=== PATIENT | male | born 1955 | race Caucasian/White ===

== ENCOUNTER → 2021-06-16 10:30 | Outpatient (BNVA) | payer MEDICARE, MEDICAID, SELFPAY | PROVIDERS: PCP Nurse Practitioner Family; Visit Provider Nurse Practitioner Family | DX: G20 Parkinson's disease (principal); G40.89 Other seizures; G24.01 Drug induced subacute dyskinesia; G62.9 Polyneuropathy, unspecified; M54.50 Low back pain, unspecified | CPT/HCPCS: Q3014 ==

== ENCOUNTER → 2021-09-28 13:26 | Outpatient (BNVA) | payer MEDICARE, MEDICAID, SELFPAY | PROVIDERS: PCP Nurse Practitioner Family; Visit Provider Nurse Practitioner Family | DX: G20 Parkinson's disease (principal); G62.9 Polyneuropathy, unspecified; G24.01 Drug induced subacute dyskinesia; M54.50 Low back pain, unspecified | CPT/HCPCS: 99212 ==

== ENCOUNTER → 2021-12-22 09:07 | Outpatient (BNVA) | payer MEDICARE, MEDICAID, SELFPAY | PROVIDERS: PCP Nurse Practitioner Family; Visit Provider Nurse Practitioner Family | DX: G20 Parkinson's disease (principal); G24.01 Drug induced subacute dyskinesia; G62.9 Polyneuropathy, unspecified | CPT/HCPCS: Q3014 ==

== ENCOUNTER → 2022-07-20 13:03 | Outpatient (BNVA) | payer MEDICARE, MEDICAID, SELFPAY | PROVIDERS: PCP Nurse Practitioner Family; Visit Provider Nurse Practitioner Family | DX: G20 Parkinson's disease (principal); G24.01 Drug induced subacute dyskinesia; G62.9 Polyneuropathy, unspecified; G40.89 Other seizures; M54.50 Low back pain, unspecified | CPT/HCPCS: Q3014 ==

== ENCOUNTER 2023-08-02 10:44 | Outpatient (AMB) | payer MEDICARE, MEDICAID, SELFPAY ==
--- NOTE | 2023-08-02 10:55 | MHC.OFFVIS ---
Intake Vital Signs 08/02/23 10:57 Height 6 ft Weight 276 lb 6 oz BMI 37.5 BP 124/78 Blood Pressure Location Rt brachial Position Sitting Pulse 83 Pulse Source Pulse Oximeter Pulse Oximetry (%) 96 Oxygen Delivery Method Room Air Intake Visit Reasons: Follow up appt per Eli DESAI Intake Note: Patient presents for follow up. it's getting a little worst, it's hard to put information in my checkbook Allergies morphine Adverse Reaction (Verified 08/02/23 10:58) Nausea Medication List - Last Reconciled 08/02/23 by MANSI Velasquez amantadine HCl 100 mg PO BID 28 days amlodipine 5 mg PO DAILY atorvastatin 40 mg PO BEDTIME carbidopa-levodopa 25-100 mg 2 tabs at 6am, 9am, and 12pm and 1.5 tab at 4pm and 9pm. 30 days clopidogrel (Plavix) 75 mg PO DAILY divalproex (Depakote) 250 mg PO BID divalproex ER mg PO docusate sodium 100 mg PO .twice a day donepezil 5 mg PO DAILY dulaglutide (Trulicity) mg subcut duloxetine (Cymbalta) 60 mg PO BID gabapentin 300 mg PO TID 28 days levothyroxine 112 mcg PO DAILY olanzapine (Zyprexa) 7.5 mg PO DAILY tamsulosin 0.8 mg PO BEDTIME tamsulosin (Flomax) 0.8 mg PO DAILY trihexyphenidyl mg PO TID HPI HPI Comments History of Present Illness Details 67-year-old male presents for f/u visit for follow-up of Parkinson's, seizure. Patient is accompanied by his live-in roll contour grinder. Patient was last seen in July 2022. Pt reports the following interval medical history changes: 2 weeks, he was diagnosed w/ LLE medial calf cellulites- was initially tx'd w/ keflex then switched doxycycline- last dose is tomorrow, has PCP f/u scheduled. Pt's current PD medication regimen: CD-LD 25-100mg ?2 tabs at 6am, 8:30am, and 12pm and 1.5 tab at 4pm and 8pm. Amantadine 100mg bid at 8am and 4pm Trihexyphenidal 1mg tid at 8am, 12pm, 4pm Gabapentin 300mg tid at 8am, 12pm, 8pm Do medication effects last between doses: None Pt's primary concerns are: Increased action tremor with writing or holding a glass- does not notice it more/less at different times. Denies rest tremor. ADL's: Ind Swallowing: No issues Drooling: No issues Orthostatic lightheadedness: None Constipation: None w/ colace bid. Freezing: None Stiffness: None Tremor: as above Dyskinesia: Prone to rolling his ankles when watching TV or sitting at the table Falls: None Hallucinations: None Memory: LTM- good. Some increase in his STM difficulties. Does better with routine. Mood: Stable. Mood tends to be worse in the am, and is better as the day progresses. Sleep: No issues. Not recalling his dreams as much. He is using his CPAP machine. Exercise: He is still going to the [employer] in [place]. Not riding the stationary bike- as staff changed and they are no longer asking him if he would like to. Walking 3 x's a week. Other: Still has some BLE calf tightness/stiffness more so in the evening. [facility] Medical History (Updated 08/03/23 @ 10:47 by MANSI Velasquez) Parkinson's disease Family History Father Heart disease Mother Cancer Sister No problems noted. Social History Alcohol intake: never Patient Tobacco Use Status: Never used Tobacco Review of Systems Const All systems reviewed & are unremarkable except as noted in HPI and below Physical Exam Vital Signs: Last Vital Signs Pulse 83 08/02/23 10:57 BP 124/78 08/02/23 10:57 Pulse Ox 96 08/02/23 10:57 Oxygen Delivery Method Room Air 08/02/23 10:57 BMI result Body Mass Index 37.5 Const General: cooperative and no acute distress Resp Effort & Inspection: normal respiratory effort and able to speak in complete sentences Neuro Other: General: Alert and oriented, responding appropriately, needs clarification on more complex questions. Expression: Decreased expression blink. Very mild orobuccal movements Voice: Soft voice Tremor: BUE postural tremor Tone: BUE tone Dyskinesia: None noted FFM: Very mild bradykinesia Foot taps: Mild bradykinesia Gait: Stands slowly, slight stoop, decreased arm swing, steps with low floor clearance, overall steady Psych: Pleasant affect Assessment & Plan Assessment & Plan (1) Parkinson's disease with dyskinesia: Comment: Positive MARKUS scan (03/31 at [facility]) tremor exacerbated by Depakote and Zyprexa Code(s): G20.B1 - Parkinson's disease with dyskinesia, without mention of fluctuations (2) Drug induced subacute dyskinesia: Comment: oral movement d/t Tardive dyskinesia Code(s): G24.01 - Drug induced subacute dyskinesia (3) Neuropathy: Code(s): G62.9 - Polyneuropathy, unspecified (4) Other seizures: Comment: Focal seizure s/p embolic stroke in 2013. Video EEG-epileptogenic activity in left frontocentral and left temporal region with mild generalized slowing. Code(s): G40.89 - Other seizures Plan Continue Sinemet 25-100mg ?2 tabs at 6am, 8:30am, and 12pm and 1.5 tab at 4pm and 8pm. Continue Amantadine 100mg bid. Increase trihexyphenidyl from 1 mg t.i.d. to 2 mg at 08:00, 1 mg at 12:00, 2 mg at 16:00- in hopes this reduces kinetic tremor.- may hold on starting until left lower extremity cellulitis is cleared. Continue Gabapentin 300mg tid. Increase physical activity, we will request that his day program begin to encourage him to resume using the stationary bike for at least 30 minutes every day that he attends program. f/u in 4-6 months in-person. Medications: Changed From trihexyphenidyl PO TID To trihexyphenidyl 2mq at 8am, 1mg at 12pm, 2mg at 4pm orally .; 28 days 70 tabs 3RF Coding Level of Care Code Est Pt Level 4 (63707) Diagnoses Parkinson's disease with dyskinesia G20.B1 Drug induced subacute dyskinesia G24.01 Neuropathy G62.9 Other seizures G40.89
[2023-08-02 10:57] VITALS: BP 124/78; PULSE 83; O2SAT 96; BMI 37.5
== END 2023-08-02 11:50 | disposition home or self-care (01) ==
PROVIDERS: PCP Nurse Practitioner Family; Visit Provider Nurse Practitioner Family
DX: G20.B1 Parkinson's disease with dyskinesia, without mention of fluctuations (principal); G40.89 Other seizures; G62.9 Polyneuropathy, unspecified
CPT/HCPCS: 99214

== ENCOUNTER → 2023-08-02 10:44 | Outpatient (BNVA) | payer MEDICARE, MEDICAID, SELFPAY | PROVIDERS: PCP Nurse Practitioner Family; Visit Provider Nurse Practitioner Family | DX: G20.B1 Parkinson's disease with dyskinesia, without mention of fluctuations (principal); G24.01 Drug induced subacute dyskinesia; G62.9 Polyneuropathy, unspecified; G40.89 Other seizures | CPT/HCPCS: 99212 ==

== ENCOUNTER 2023-11-15 11:35 | Outpatient (AMB) | payer MEDICARE, MEDICAID, SELFPAY ==
--- NOTE | 2023-11-15 11:35 | A.OFFVIS_ITS ---
Intake Visit Reasons: Follow up-CONF Intake Note: Patient has no issues or concerns today. Allergies morphine Adverse Reaction (Verified 11/15/23 11:36) Nausea Medication List - Last Reconciled 11/15/23 by MANSI Velasquez amantadine HCl 100 mg PO BID 28 days amlodipine 5 mg PO DAILY atorvastatin 40 mg PO BEDTIME carbidopa-levodopa 25-100 mg 2 tabs at 6am, 9am, and 12pm and 1.5 tab at 4pm and 9pm. 30 days clopidogrel (Plavix) 75 mg PO DAILY divalproex (Depakote) 250 mg PO BID divalproex ER mg PO docusate sodium 100 mg PO .twice a day donepezil 5 mg PO DAILY dulaglutide (Trulicity) mg subcut duloxetine (Cymbalta) 60 mg PO BID gabapentin 300 mg PO TID 28 days levothyroxine 112 mcg PO DAILY olanzapine (Zyprexa) 7.5 mg PO DAILY tamsulosin 0.8 mg PO BEDTIME tamsulosin (Flomax) 0.8 mg PO DAILY trihexyphenidyl 2mq at 8am, 1mg at 12pm, 2mg at 4pm orally .; 28 days HPI Comments Details: 67-yr-old male presents for f/u televideo visit- visit switched over to telephone visit d/t link was not effective. Pt is accompanied by his caregiver. Pt's primary concerns is he is still having bothersome action tremor with writing- especially in his check register, or holding a glass. This is increased when anxious. He has not noticed an appreciable change since increasing Trihexiphendyl, his PCP further increased the dose to 2mg tid about 2 weeks ago. Though fully starting this dose was delayed d/t mail order med bubble packs and day program. Pt's current PD medication regimen: CD-LD 25-100mg ?2 tabs at 6am, 8:30am, and 12pm and 1.5 tab at 4pm and 8pm. Amantadine 100mg bid at 8am and 4pm Trihexyphenidal 2mg tid at 8am, 12pm, 4pm Gabapentin 300mg tid at 8am, 12pm, 8pm ADL's: Ind Swallowing: No issues Drooling: No issues Orthostatic lightheadedness: None Constipation: None w/ colace bid. Freezing: None Stiffness: None Tremor: as above Dyskinesia: Prone to rolling his ankles when watching TV or sitting at the table Falls: None Hallucinations: None Memory: LTM- good. Some STM difficulties. Does better with routine. Mood: Stable. Mood tends to be worse in the am, and is better as the day progresses. Sleep: No issues. Not recalling his dreams as much. He is using his CPAP machine. Exercise: He is still going to the [employer] in [place]. Riding the stationary bike more regularly. Walking a few x's per week. Other: Using BLE compression stockings. [facility] Medical History (Updated 08/03/23 @ 10:47 by MANSI Velasquez) Parkinson's disease Family History Father Heart disease Mother Cancer Sister No problems noted. Social History Alcohol intake: never Patient Tobacco Use Status: Never used Tobacco Review of Systems Const All systems reviewed & are unremarkable except as noted in HPI and below Physical Exam Const General: cooperative and no acute distress Resp Effort & Inspection: normal respiratory effort and able to speak in complete sentences Neuro Other: General: Alert, orienetd, responding appropriately, w/ some STM lapses Voice: Soft voice Telehealth Telehealth Telehealth Platform: Telephone Location of provider rendering services: practice address Location of patient: address on file Patient Identification confirmed using: Name, : Yes Telehealth method: video Patient verbally consented to treatment: Yes Patient verbally consented to billing insurance company: Yes Patient informed of any privacy concerns related to visit: Yes Minutes spent on Phone/Video with Pt.: 23 Assessment & Plan Assessment & Plan (1) Parkinson's disease with dyskinesia: Comment: Positive MARKUS scan (03/31 at [facility]) tremor exacerbated by Depakote and Zyprexa Code(s): G20.B1 - Parkinson's disease with dyskinesia, without mention of fluctuations Category: Medical (2) Neuropathy: Code(s): G62.9 - Polyneuropathy, unspecified Category: Medical (3) Drug induced subacute dyskinesia: Comment: oral movement d/t Tardive dyskinesia Code(s): G24.01 - Drug induced subacute dyskinesia Category: Medical (4) Other seizures: Comment: Focal seizure s/p embolic stroke in 2014. Video EEG-epileptogenic activity in left frontocentral and left temporal region with mild generalized slowing. Code(s): G40.89 - Other seizures Category: Medical Plan As trihexyphendyl recently increased, will hold making any changes for at least 8 weeks to assess for full effect and tolerance. If no reduction in kinetic tremor and tolerated well, could consider further increase in triheyphendyl or increasing Amantadine. Reviewed to monitor for anti-cholinergic s/e's. Advised to try using a larger check book ledger, use covered cups. Information shared on the [employer]- they have a information on different adaptive equipment which may help pt. Discussed trying OT- however pt and caregiver do not think that pt will do the needed work/exercises to make this beneficial. For now: Continue Sinemet 25-100mg ?2 tabs at 6am, 8:30am, and 12pm and 1.5 tab at 4pm and 8pm. Continue Amantadine 100mg bid. Continue trihexyphenidyl 2mg tid. Continue Gabapentin 300mg tid. Continue physical activity. f/u in 6 months in-person. Coding Level of Care Code Tele Est Pt Level 4 (09789) Diagnoses Parkinson's disease with dyskinesia G20.B1 Neuropathy G62.9 Drug induced subacute dyskinesia G24.01 Other seizures G40.89
--- OUTSIDE RECORDS SUMMARY | 2023-11-17 10:30 | XMS_ITS | Continuity of Care Document ---
Author Organization [facility] Address [address] [facility], [address], [address] [place] [id number]- Care Team Providers Care Printed Circuit Boards Stripper Etcher Name Role Phone Kalie TRACY, Katya Michaels Primary Care Physic kyler Encounter [facility] Date(s): 09/01/22 - 10/01/22 [facility] [address], [address], [address] [place] [id number]- Attending Physician: Radhika Nowak Admitting Physician: Radhika Nowak Referring Physician: AdmtrRadhika Allergies, Adverse Reactions, Alerts Substance Reaction Severity Status morphine nausea Active Immunizations Given and Recorded Vaccine Date Status Refusal Reason SARS-CoV-2 (COVID-19) mRNA BNT-162b2 vac 09/10/20 Given SARS-CoV-2 (COVID-19) mRNA BNT-162b2 vac 08/20/20 Given Not Given Vaccine Date Status Refusal Reason pneumococcal 23-valent vaccine 1 03/28/15 Not Give n Patient Refuses influenza virus vaccine, inactivated 2 03/28/15 No t Given Patient Refuses 1Result Note: pt refused 2Result Note: pt refused Medications amantadine 100 mg oral capsule 100 mg, 1, capsule, By Mouth, 2 times a day, # 60 capsule, Refills 0, Tot. Refills 0, Maintenance, 04/29/22 10:37:00 EST, Route to Pharmacy Electronically, [facility], Partial fill upon patient request if the prescription is for a schedule... Start Date: 04/29/22 Status: Ordered amLODIPine 5 mg oral tablet 5 mg, 1, tablet, By Mouth, Daily in AM, # 30 tablet, Refills 0, Tot. Refills 0, Maintenance, 04/29/22 10:37:00 EST, Route to Pharmacy Electronically, [facility], Partial fill upon patient request if the prescription is for a schedule II op... Start Date: 04/29/22 Status: Ordered atorvastatin 40 mg oral tablet 1 tablet = 40 mg, By Mouth, Daily at bedtime, # 30 tablet, 0 Refills, Maintenance, 04/29/22 10:37:00 EST, Tablet, [facility], Partial fill upon patient request if the prescription is for a schedule II opioid drug., 183, cm, 04/29/22 8:11:0... Start Date: 04/29/22 Status: Ordered carbidopa-levodopa 25 mg-100 mg oral tablet 2 tablet, By Mouth, 3 times a day, instructions: 2 tablets: 6am, 9am, 12pm 1.5 tablets: 4pm, bedtime, # 180 tablet, 0 Refills, Maintenance, 04/29/22 10:37:00 EST, Tablet, [facility], Partial fill upon patient request if the prescription... Start Date: 04/29/22 Status: Ordered carbidopa-levodopa 25 mg-100 mg oral tablet 1.5 tablet, By Mouth, 2 times a day, instructions: 2 tablets: 6am, 9am, 12pm 1.5 tablets: 4pm, bedtime, # 90 tablet, 0 Refills, Maintenance, 04/29/22 10:37:00 EST, Tablet, [facility],Partial fill upon patient request if the prescriptio... Start Date: 04/29/22 Status: Ordered clopidogrel 75 mg oral tablet 75 mg, 1, tablet, By Mouth, Daily, # 30 tablet, Refills 0, Tot. Refills 0, Maintenance, 04/29/22 10:40:00 EST, Route to Pharmacy Electronically, [facility], Partial fill upon patient request if the prescription is for a schedule II opioid... Start Date: 04/29/22 Status: Ordered divalproex sodium 250 mg oral tablet, extended release 3 tablet = 750 mg, By Mouth, Daily at bedtime, # 90 tablet, 9 Refills, Maintenance, 09/01/22 15:06:00 EDT, ER Tablet, [facility], Partial fill upon patient request if the prescriptionis for a schedule II opioid drug., 183, cm, 05/02/22 8:... Start Date: 09/01/22 Stop Date: 06/28/23 Status: Ordered docusate sodium 100 mg oral capsule 100 mg, 1, capsule, By Mouth, 2 times a day, # 60 capsule, Refills 0, Tot. Refills 0, Maintenance, 04/29/22 10:40:00 EST, Route to Pharmacy Electronically, [facility], Partial fill upon patient request if the prescription is for a schedule... Start Date: 04/29/22 Status: Ordered donepezil 5 mg oral tablet 5 mg, 1, tablet, By Mouth, Daily at bedtime, # 30 tablet, Refills 0, Tot. Refills 0, Maintenance, 04/29/22 10:41:00 EST, Route to Pharmacy Electronically, [facility], Partial fill upon patient request if the prescription is for a schedule... Start Date: 04/29/22 Status: Ordered duloxetine 30 mg oral enteric coated capsule 1 capsule = 30 mg, By Mouth, Daily, # 30 capsule, 0 Refills, Maintenance, 04/29/22 10:40:00 EST, Capsule, [facility], Partial fill upon patient request if the prescription is for a schedule II opioid drug., 183, rico, 04/29/22 8:11:00 EST, H... Start Date: 04/29/22 Status: Ordered duloxetine 60 mg oral enteric coated capsule 1 capsule = 60 mg, By Mouth, Daily at bedtime, # 30 capsule, 0 Refills, Maintenance, 04/29/22 10:40:00 EST, Capsule, [facility], Partial fill upon patient request if the prescription is for a schedule II opioid drug., 183, cm, 04/29/22 8:1... Start Date: 04/29/22 Status: Ordered gabapentin 300 mg oral capsule 300 mg, 1, capsule, By Mouth, 2 times a day, # 60 capsule, Refills 0, Tot. Refills 0, Maintenance, 04/29/22 10:40:00 EST, Route to Pharmacy Electronically, [facility], Partial fill upon patient request if the prescription is for a schedule... Start Date: 04/29/22 Status: Ordered lactulose 10 gm/15 ml oral syrup 30 mL = 20 Gm, By Mouth, 3 times a day, PRN Constipation, 0 Refills, Maintenance, 04/15/22 9:16:00 EDT, Syrup, Partial fill upon patient request if the prescription is for a schedule II opioid drug. Start Date: 04/15/22 Status: Ordered levothyroxine 0.112 mg oral tablet 1 tablet = 112 mcg, By Mouth, Daily, # 30 tablet, 0 Refills, Maintenance, 04/29/22 10:40:00 EST, Tablet, [facility], Partial fill upon patient request if the prescription is for a schedule II opioid drug., 183, cm, 04/29/22 8:11:00 EST, He... Start Date: 04/29/22 Status: Ordered olanzapine 5 mg oral tablet 5 mg, 1, tablet, By Mouth, Daily at supper, # 30 tablet, Refills 0, Tot. Refills 0, Maintenance, 04/29/22 10:41:00 EST, Route to Pharmacy Electronically, [facility], Partial fill uponpatient request if the prescription is for a schedule I... Start Date: 04/29/22 Status: Ordered tamsulosin 0.4 mg oral capsule 0.8 mg, 2, capsule, By Mouth, Daily at bedtime, # 60 capsule, Refills 0, Tot. Refills 0, Maintenance, 04/29/22 10:41:00 EST, Route to Pharmacy Electronically, [facility], Partial fillupon patient request if the prescription is for a sched... Start Date: 04/29/22 Status: Ordered traZODone 50 mg oral tablet 50 mg, 1, tablet, By Mouth, Daily at bedtime, PRN, 1 tablet as needed for insomnia, # 30 tablet, Refills 0, Tot. Refills 0, Maintenance, Sleep, 04/29/22 10:41:00 EST, Route to Pharmacy Electronically, [facility], Partial fill upon patient... Start Date: 04/29/22 Status: Ordered trihexyphenidyl 2 mg oral tablet 1 mg, 0.5, tablet, By Mouth, 3 times a day, # 45 tablet, Refills 0, Tot. Refills 0, Maintenance, 04/29/22 10:41:00 EST, Route to Pharmacy Electronically, [facility], Partial fill uponpatient request if the prescription is for a schedule I... Start Date: 04/29/22 Status: Ordered Tylenol 325 mg oral tablet 650 mg, 2, tablet, By Mouth, Every 4 hours, PRN, # 60 tablet, Refills 0, Tot. Refills 0, Maintenance, Pain , Mild, 04/29/22 10:36:00 EST, Route to Pharmacy Electronically, [facility],Partial fill upon patient request if the prescription i... Start Date: 04/29/22 Status: Ordered Problem List Condition Confirmation Course Effective Dates Status H ealth Status Informant Anxiety Confirmed Active Atrial septal defect Confirmed Active Abnormal glucose Confirmed Active Embolic stroke 1 Confirmed Active Depression Confirmed Active Dyslipidemia Confirmed Active Elevated prostate specific antigen (PSA) Confirmed Active GERD (gastroesophageal reflux disease) Confirmed Active Hypothyroidism Confirmed Active IBS (irritable bowel syndrome) Confirmed Active Obese class II Confirmed Active Parkinsonism Confirmed Active Toxicology Confirmed Active Prostatitis Confirmed Active Tremor Confirmed Active 1on aspirin 325 mg po daily at d/c from [place] Social History Social History Type Response Smoking Status Never smoker entered on: 02/20/15 Sex Patient Care team information Care Team Personnel Name: Loretta Benjamin RN Position: [facility] RN Member Role: Primary Care Nurse Name: Ani Denise RN Position: [facility] RN Member Role: Primary Care Nurse Name: Bennie Huerta MD Position: [facility] PCO w/OE and EZ Script Member Role: Lifetime Consulting Physician Name: Catrachita Carver RN Position: [facility] Rad RN Member Role: Primary Care Nurse Name: Nino Mckeon RN Position: [facility] RN Member Role: Primary Care Nurse Name: Elaine Soares RN Position: [facility] RN Member Role: Primary Care Nurse Name: Charu Romo RN Position: [facility] RN Member Role: Primary Care Nurse Name: Rema Vizcaino RN Position: [facility] RN Member Role: Primary Care Nurse Name: Duke Tejeda RN Position: [facility] RN Member Role: Primary Care Nurse Name: Lise Parish Position: [facility] RN Member Role: Primary Care Nurse Name: Kapil Chan RN Position: [facility] RN Member Role: Primary Care Nurse Name: Juli Lilly Position: [facility] Outreach Member Role: Primary Care Nurse Name: Catrachita Mott RN Position: [facility] Hospital Web Sizer Member Role: Primary Care Nurse Name: Maria M Rangel RN Position: [facility] RN Member Role: Primary Care Nurse Name: Wiliam Lin MD Position: [facility] Renal MD Member Role: Lifetime Consulting Physician Address: Address: [address] [facility] [place] [address]- Name: Rosa Samuel RN Position: [facility] SN RN Member Role: Primary Care Nurse Name: Caitlyn Alvarez RN Position: [facility] RN Member Role: Primary Care Nurse Name: Susie Mcclain RN Position: [facility] RN Supv Member Role: Primary Care Nurse Name: Gillian Cantu RN Position: [facility] RN Member Role: Primary Care Nurse Name: Marely Castro RN Position: [facility] RN Member Role: Primary Care Nurse Name: Lissette Reynolds RN Position: [facility] SN RN Member Role: Primary Care Nurse Name: Eleanor Ricardo RN Position: [facility] RN Member Role: Primary Care Nurse Name: Katya Jade NP Position: [facility] Associate Professional Member Role: PCP Address: Address: [address], [place] - Name: Polina Daniel RN Position: [facility] RN Member Role: Primary Care Nurse Name: Rekha Lara RN Position: [facility] RN Member Role: Primary Care Nurse Care Team Related Persons Name: ALAINA LUNDBERG Address: home [address] [place], [place] Name: ANUJ HARDEN Address: home [address] [place] [address]
--- OUTSIDE RECORDS SUMMARY | 2023-11-17 10:30 | XMS_ITS | Continuity of Care Document ---
Author Organization [facility] Address [address] [address]- Care Team Providers Care Trust Operations Assistant Name Role Phone Kalie TRACY, Katya Michaels Primary Care Physic kyler [place] [facility] [place] 10/[place]/23 [place] [id number] [address]- [place] Encounter Diagnosis Leg edema(Discharge Diagnosis) - 10/20/23 Attending Physician: Ollie DE JESUS, Leighann Osborne Admitting Physician: Leighann Levin MD Referring Physician: Katya Jade NP Allergies, Adverse Reactions, Alerts Substance Reaction Severity Status morphine nausea Active Immunizations Given and Recorded Vaccine Date Status Refusal Reason SARS-CoV-2 (COVID-19) mRNA BNT-162b2 vac 09/10/20 Given SARS-CoV-2 (COVID-19) mRNA BNT-162b2 vac 08/20/20 Given Medications amantadine 100 mg oral capsule 100 [...] 0 Refills, Maintenance, 04/29/22 10:37:00 EST, Tablet, [facility], Partial fill upon patient request if the prescription is for a schedule II opioid drug., 183, cm, 04/29/22 8:11:0... Start Date: 04/29/22 Status: Ordered carbidopa-levodopa 25 mg-100 mg oral tablet 2 tablet, By Mouth, 3 times a day, instructions: 2 tablets: 6am, 9am, 12pm 1.5 tablets: 4pm, bedtime, # 180 tablet, 0 Refills, Maintenance, 04/29/22 10:37:00 EST, Tablet, [facility], Partial fill upon patient request if the prescription... Start Date: 04/29/22 Status: Ordered carbidopa-levodopa 25 mg-100 mg oral tablet 1.5 tablet, By Mouth, 2 times a day, instructions: 2 tablets: 6am, 9am, 12pm 1.5 tablets: 4pm, bedtime, # 90 tablet, 0 Refills, Maintenance, 04/29/22 10:37:00 EST, Tablet, [facility],Partial fill upon patient request if the prescriptio... Start Date: 04/29/22 Status: Ordered clopidogrel 75 mg oral tablet 75 mg, 1, tablet, By Mouth, Daily, # 30 tablet, Refills 0, Tot. Refills 0, Maintenance, 04/29/22 10:40:00 EST, Route to Pharmacy Electronically, [facility], Partial fill upon patient request if the prescription is for a schedule II opioid... Start Date: 04/29/22 Status: Ordered divalproex sodium 250 mg oral tablet, extended release 3 tablet, By Mouth, Daily at bedtime, # 84 tablet, 8 Refills, Maintenance, 09/14/23 16:43:00 EDT, [facility], 183, cm, 09/14/23 16:09:00 EDT, Height, 123, kg, 04/15/22 17:43:00 EDT, Dry Weight Start Date: 09/14/23 Status: Ordered docusate sodium 100 mg oral capsule 100 mg, 1, capsule, By Mouth, 2 times a day, # 60 capsule, Refills 0, Tot. Refills 0, Maintenance, 04/29/22 10:40:00 EST, Route to Pharmacy Electronically, [facility] [...] opioid drug., 183, cm, 04/29/22 8:11:00 EST, H... Start Date: 04/29/22 Status: Ordered duloxetine 60 mg oral enteric coated capsule 1 capsule = 60 mg, By Mouth, Daily at bedtime, # 30 capsule, 0 Refills, Maintenance, 04/29/22 10:40:00 EST, Capsule, [facility], Partial fill upon patient request if the prescription is for a schedule II opioid drug., 183, cm, 04/29/22 8:1... Start Date: 04/29/22 Status: Ordered duloxetine 60 mg oral enteric coated capsule 1 capsule = 60 mg, By Mouth, Daily, 0 Refills, Maintenance, 10/20/23 15:17:00 EDT, Partial fill upon patient request if the prescription is for a schedule II opioid drug. Start Date: 10/20/23 Status: Ordered gabapentin 300 mg oral capsule [...] EST, He... Start Date: 04/29/22 Status: Ordered Lisinopril = 5 mg, By Mouth, Daily, 0 Refills, Maintenance, 10/20/23 15:16:00 EDT, Partial fill upon patient request if the prescription is for a schedule II opioid drug. Start Date: 10/20/23 Status: Ordered olanzapine 5 mg oral tablet [...] schedule I... Start Date: 04/29/22 Status: Ordered Trulicity Pen 0.75 mg/0.5 mL subcutaneous solution 0.5 mL = 0.75 mg, Subcutaneous Injection, Every week, 0 Refills, Maintenance, 09/14/23 16:13:00 EDT, Solution, Partial fill upon patient request if the prescription is for a schedule II opioid drug. Start Date: 09/14/23 Status: Ordered Tylenol 325 mg oral tablet 650 mg, 2, tablet, By Mouth, Every 4 hours, PRN, # 60 tablet, Refills 0, Tot. Refills 0, Maintenance, Pain , Mild, 04/29/22 10:36:00 EST, Route to Pharmacy Electronically, [facility],Partial fill upon patient request if the prescription i... Start Date: 04/29/22 Status: Ordered Problem List Condition Confirmation Course Effective Dates Status H ealt Status Informant Anxiety Confirmed Active Atrial septal defect Confirmed Active Abnormal glucose Confirmed Active Embolic stroke 1 Confirmed Active Depression Confirmed Active Dyslipidemia Confirmed Active Leg edema Confirmed Active Elevated prostate specific antigen (PSA) Confirmed Active GERD (gastroesophageal reflux disease) Confirmed Active Hypothyroidism Confirmed Active IBS (irritable bowel syndrome) Confirmed Active Parkinsonism Confirmed Active Toxicology Confirmed Active Prostatitis Confirmed Active Severe obesity (BMI 35.0-39.9) with comorbidity Confirmed Active Tremor Confirmed Active 1on aspirin 325 mg po daily at d/c from [place] Diagnosis Diagnosis Type Effective Dates Health Status Clini christopher Service Informant Leg edema Discharge Diagnosis 10/20/23 Vital Signs Most recent to oldest [Reference Range]: 1 Height 183 cm (10/20/23 3:13 PM) Weight 124.7 kg (10/20/23 3:13 PM) Oxygen Saturation [94-100 %] 96 % (10/20/23 3:13 PM) Pulse Rate [55-90 bpm] 79 bpm (10/20/23 3:13 PM) Body Mass Index [18.5-24.99 kg/m2] 37.24 kg/m2 *>HHI* (10/20/23 3:13 PM) Blood Pressure [90-138/55-84 mm Hg] 135/ 60mm Hg (10/20/23 3:13 PM) Mode of Delivery (Oxygen) Room air (10/20/23 3:13 PM) Blood pressure sites Arm, left (10/20/23 3:13 PM) Weight Obtained Via Standing scale (10/20/23 3:13 PM) Social History Social History Type Response Smoking Status Never smoker entered on: 02/20/15 Sex Note * Chanda Armenta: PERFORM Event Display: Patient Education/Instruction Authored Date: [id number] Ambulatory Adult Visit Summary [facility] [address] [place] [address] Name: MEGHAN MEJÍA : 1955?? Visit: 10/20/2023 15:00?? Ambulatory Visit Instructions ?? Your Care Team Primary Care Provider Kalie TRACY, Katya Michaels? This Visit Provider Leighann Levin MD Your Diagnosis Leg edema Vitals Signs Pulse Rate: 79 bpm Height: 183 cm Systolic Blood Pressure: 135 mm Hg Weight: 124.7 kg Diastolic Blood Pressure: 60 mm Hg Body Mass Index:??37.24 kg/m2??Critical Oxygen Saturation: 96 % Body surface area: 2.52 What to do next Follow-Up Appointments Follow up Appointment - Ordered?-- PRN, 10/20/23 15:42:00 EDT Medications The list below reflects the information in our records and provided by you today along with any changes made during this visit. Please continue your medications until treatment is completed or stopped by your provider. If this is different from the information you have or there are other questions,please contact the prescribing provider. What How Much When Instructions Unchanged Acetaminophen (Tylenol 325 mg oral tablet) 2 tab(s) Oral Every 4 hours as needed for Pain , Mild Unchanged Amantadine (amantadine 100 mg oral capsule) 1 capsule Oral Twice a day Unchanged Amlodipine (amLODIPine 5 mg oral tablet) 1 tab(s) Oral Daily in the morning Unchanged Atorvastatin (atorvastatin 40 mg oral tablet) 1 tab(s) Oral Daily at Bedtime Unchanged Carbidopa-Levodopa (carbidopa-levodopa 25 mg-100 mg oral tablet) 1.5 tab(s) Oral Twice a day instructions: 2 tablets: 6am, 9am, 12pm 1.5 tablets: 4pm, bedtime ?? Unchanged Carbidopa-Levodopa (carbidopa-levodopa 25 mg-100 mg oral tablet) 2 tab(s) Oral 3 times a day instructions: 2 tablets: 6am, 9am, 12pm 1.5 tablets: 4pm, bedtime ?? Unchanged Clopidogrel (clopidogrel 75 mg oral tablet) 1 tab(s) Oral Daily Unchanged Divalproex Sodium (divalproex sodium 250 mg oral tablet, extended release) 3 tab(s) Oral Daily at Bedtime Unchanged Docusate (docusate sodium 100 mg oral capsule) 1 capsule Oral Twice a day Unchanged Donepezil (donepezil 5 mg oral tablet) 1 tab(s) Oral Daily at Bedtime Unchanged dulaglutide (Trulicity Pen 0.75 mg/ 0.5 mL subcutaneous solution) 0.5 Milliliter Subcutaneous Injection Every week Unchanged Duloxetine (duloxetine 30 mg oral enteric coated capsule) 1 capsule Oral Daily Unchanged Duloxetine (duloxetine 60 mg oral enteric coated capsule) 1 capsule Oral Daily Unchanged Duloxetine (duloxetine 60 mg oral enteric coated capsule) 1 capsule Oral Daily at Bedtime Unchanged Gabapentin (gabapentin 300 mg oral capsule) 1 capsule Oral Twice a day Unchanged Lactulose (lactulose 10 gm/ 15 ml oral syrup) 30 Milliliter Oral 3 times a day as needed for Constipation Unchanged Levothyroxine (levothyroxine 0.112 mg oral tablet) 1 tab(s) Oral Daily Unchanged Lisinopril 5 Milligram Oral Daily Unchanged Olanzapine (olanzapine 5 mg oral tablet) 1 tab(s) Oral Daily at supper Unchanged Tamsulosin (tamsulosin 0.4 mg oral capsule) 2 capsule Oral Daily at Bedtime Unchanged Trazodone (traZODone 50 mg oral tablet) 1 tab(s) Oral Daily at Bedtime as needed for Sleep 1 tablet as needed for insomnia ?? Unchanged Trihexyphenidyl (trihexyphenidyl 2 mg oral tablet) 0.5 tab(s) Oral 3 times a day Medications and Immunizations Administered Medications Given During Visit No medications given during this visit.?? Allergies (NKA means No Known Allergies) morphine??(nausea) Common Emergency Awareness Tips IS IT A STROKE? Act FAST and Check for these signs: FACE Does the face look uneven? ARM Does one arm drift down? SPEECH Does their speech sound strange? TIME Call at any sign of stroke ?? Heart Attack Signs Chest discomfort: Most heart attacks involve discomfort in the center of the chest and lasts more than a few minutes, or goes away and comes back. It can feel like uncomfortable pressure, squeezing, fullness or pain. Discomfort in upper body: Symptoms can include pain or discomfort in one or both arms, back, neck, jaw or stomach. Shortness of breath: With or without discomfort. Other signs: Breaking out in a cold sweat, nausea, or lightheaded. Remember, MINUTES DO MATTER. If you experience any of these heart attack warning signs, call to get immediate medical attention! ?? Smoking can increase your chances of developing chronic health problems and can cause harmful effects to other family members in your house. If you smoke, you are strongly encouraged to quit. Please call [facility] [employer] Link at [phone] or 1-296-335iConText ([phone]) or log in to [email or web address] for referrals to smoking cessation programs. ?? The National Suicide Prevention Hotline is available 02/01 if you or someone you know needs to find a reason to keep living. By calling 9-580-592-Traxian (5270) you'll be connected to a skilled, trained counselor at a crisis center in your area. [facility] [employer] Portal You can view and manage your care through the patient portal or by using a health care ronal of your choosing. [employer] is a website that allows you to securely view your medical information including your hospital discharge summary, office visit summaries, medications and follow-up visits. You can also request appointments, renew medications, and request access to your medical information using a health care ronal of your choosing, or just ask a question. You can enroll at [email or web address] or register during your next office visit. [facility], in keeping with [facility] guidance, no longer requires face masks for staff, patientsor visitors in most situations. Similiar to time spent indoors at other locations, there is the chance that you were exposed to repiratory viruses during your time with us (such as flu or COVID-19). If you develop symptoms concerning for a viral respiratory infection, please seek testing (and treatment if indicated) from your medical provider or home test kit. ?? Disclaimer: The information provided is of a general nature and is intended to be used in conjunction with the recommendations and advice of your health care practitioner. Every effort has been made to ensure that the information provided is accurate and complete at the time it is provided to you however, as your needs change, or, as new information becomes available, different or additional instructions may be required. ?? If you have questions, please consult with your primary care provider or pharmacist, as appropriate. This information is not intended to serve as substitution for assessment and evaluation by a qualified health care provider. If you do not have a primary care provider, you may find a [facility] provider by calling [facility] at [phone]. Patient Care team information Care Team Personnel Name: Loertta Benjamin RN Position: [facility] RN Member Role: Primary Care Nurse Name: Ani Denise RN Position: [facility] RN Member Role: Primary Care Nurse Name: Bennie Huerta MD Position: [facility] PCO w/OE and EZ Script Member Role: Lifetime Consulting Physician Name: Elaine Madden RN Position: [facility] RN Member Role: Primary Care Nurse Name: Catrachita Carver RN Position: [facility] Rad RN Member Role: Primary Care Nurse Name: Nino Mckeon RN Position: [facility] Outreach Member Role: Primary Care Nurse Name: Charu Romo RN Position: [facility] RN Member Role: Primary Care Nurse Name: Rema Vizcaino RN Position: [facility] RN Member Role: Primary Care Nurse Name: Duke Tejeda RN Position: [facility] RN Member Role: Primary Care Nurse Name: Lise Deluca [place] Position: [facility] Office Staff Member Role: Primary Care Nurse Name: Kapil Chan RN Position: [facility] Hospital Baker Test Member Role: Primary Care Nurse Name: Juli Lilly Position: [facility] Outreach Member Role: Primary Care Nurse Name: Catrachita Mott RN Position: [facility] Baker Test Member Role: Primary Care Nurse Name: Maria M Rangel RN Position: [facility] RN Member Role: Primary Care Nurse Name: Wiliam Lin MD Position: [facility] Renal MD Member Role: Lifetime Consulting Physician Address: Address: [address] [facility] [place] [address]- [place] Name: Rosa Samuel RN Position: [facility] SN RN Member Role: Primary Care Nurse Name: Caitlyn Alvarez RN Position: [facility] RN Member Role: Primary Care Nurse Name: Susie Mcclain RN Position: [facility] RN Member Role: Primary Care Nurse Name: Lissette Reynolds RN Position: [facility] SN RN Member Role: Primary Care Nurse Name: Eleanor Ricardo RN Position: [facility] RN Member Role: Primary Care Nurse Name: Katya Jade NP Position: Reference Physician Member Role: PCP Address: Address: [address] [place] [address]- [place] Name: Rekha Lara RN Position: [facility] RN Member Role: Primary Care Nurse Care Team Related Persons Name: ALAINA LUNDBERG Address: home [address] [place] [address] Name: ANUJ HARDEN Address: home [address] [place] [address]
--- OUTSIDE RECORDS SUMMARY | 2023-11-17 10:30 | XMS_ITS | Continuity of Care Document ---
Author Organization [facility] Address [address] [place] [address], [address] Floor, [address] [place] [address]- Care Team Providers Care Battery Repairer Name Role Phone Kalie TRACY, Katya Michaels Primary Care Physic kyler [place] [facility] [place]): [place]22 [facility] [address], [address], [address] [place] [address]- Attending Physician: Dipesh TRACY, Alfredo Crowe Referring Physician: Kalie TRACY, Katya Michaels Allergies, Adverse Reactions, Alerts Substance Reaction Severity [...] Refills, Maintenance, 09/01/22 15:06:00 EDT, ER Tablet, [facility], Partial fill upon [...] 325 mg po daily at d/c from [place] Social History Social History Type Response Smoking Status Never smoker entered on: 02/20/15 Sex Patient Care team information Care Team Personnel Name: Loretta Benjamin RN Position: [facility] RN Member Role: Primary Care Nurse Name: Ani Denise RN Position: [facility] RN Member Role: Primary Care Nurse Name: Bennie Huerta MD Position: [facility] PCO w/OE and EZ Script Member Role: Lifetime Consulting Physician Name: Catrachita Carver RN Position: [facility] Rad RN Member Role: Primary Care Nurse Name: Nino Mckeon RN Position: [facility] RN Member Role: Primary Care Nurse Name: Nathalia Panda Position: [facility] RN Member Role: Primary Care Nurse Name: Elaine Soares RN Position: [facility] RN Member Role: Primary Care Nurse Name: Charu Romo RN Position: [facility] RN Member Role: Primary Care Nurse Name: Rema Vizcaino RN Position: [facility] RN Member Role: Primary Care Nurse Name: Duke Tejeda RN Position: [facility] RN Member Role: Primary Care Nurse Name: Lise Parish Position: [facility] RN Member Role: Primary Care Nurse Name: Kapil Chan RN Position: [facility] RN Member Role: Primary Care Nurse Name: Juli Lilly Position: [facility] Outreach Member Role: Primary Care Nurse Name: Catrachita Mott RN Position: [facility] Hospital Oil Speculator Member Role: Primary Care Nurse Name: Maria M Rangel RN Position: [facility] RN Member Role: Primary Care Nurse Name: Wiliam Lin MD Position: [facility] Renal MD Member Role: Lifetime Consulting Physician Address: Address: [address] [facility], [place] [address]- [place] Name: Rosa Samuel RN Position: [facility] SN RN Member Role: Primary Care Nurse Name: Caitlyn Alvarez RN Position: [facility] RN Member Role: Primary Care Nurse Name: Susie Mcclain RN Position: [facility] RN Supv Member Role: Primary Care Nurse Name: Gillian Cantu RN Position: [facility] RN Member Role: Primary Care Nurse Name: Marely Castro RN Position: [facility] RN Member Role: Primary Care Nurse Name: Lissette Reynolds RN Position: [facility] SN RN Member Role: Primary Care Nurse Name: Eleanor Ricardo RN Position: [facility] RN Member Role: Primary Care Nurse Name: Katya Jade NP Position: [facility] Associate Professional Member Role: PCP Address: Address: [address] [place], [place] - Name: Polina Daniel RN Position: [facility] RN Member Role: Primary Care Nurse Name: Rekha Lara RN Position: [facility] RN Member Role: Primary Care Nurse Care Team Related Persons Name: ALAINA LUNDBERG Address: [address] [place] Name: ANUJ HARDEN Address: home [address] [place] [address]
--- OUTSIDE RECORDS SUMMARY | 2023-11-17 10:30 | XMS_ITS | Continuity of Care Document ---
Author Organization [facility] Address [address] [facility], 3[address] d Floor, [address] [place] [address]- Care Team Providers Care Donor Recruiter Name Role Phone Kalie TRACY, Katya Michaels Primary Care Physic kyler Encounter [facility] [place] [facility] [place] [id number] Date(s): 09/14/23 - 09/21/23 [facility] [address] [address]- Attending Physician: Paris Patiño MD, Rita Allergies, Adverse Reactions, Alerts Substance Reaction Severity [...] Electronically, [facility], Partial fillupon patient request if [...] 325 mg po daily at d/c from [place] Vital Signs Most recent to oldest [Reference Range]: 1 Height 183 cm (09/14/23 4:09 PM) Weight 127 kg (09/14/23 4:09 PM) Oxygen Saturation [94-100 %] 95 % (09/14/23 4:09 PM) Body Mass Index [18.5-24.99 kg/m2] 37.92 kg/m2 *>HHI* (09/14/23 4:09 PM) Blood Pressure [90-138/55-84 mm Hg] 116/ 61mm Hg (09/14/23 4:09 PM) Respiratory Rate [16-30 br/min] 20 br/mi n (09/14/23 4:09 PM) Blood pressure sites Arm, right (09/14/23 4:09 PM) Weight Obtained Via Bed scale (09/14/23 4:09 PM) Social History Social History Type Response Smoking Status Never smoker entered on: 02/20/15 Sex Patient Care team information Care Team Personnel Name: Loretta Benjamin RN Position: [facility] RN Member Role: Primary Care Nurse Name: Ani Denise RN Position: [facility] RN Member Role: Primary Care Nurse Name: Benine Huerta MD Position: [facility] PCO w/OE and EZ Script Member Role: Lifetime Consulting Physician Name: Elaine Madden RN Position: [facility] RN Member Role: Primary Care Nurse Name: Catrachita Carver RN Position: [facility] Rad RN Member Role: Primary Care Nurse Name: Nino Mckeon RN Position: [facility] Outreach Member Role: Primary Care Nurse Name: Charu Romo RN Position: [facility] RN Member Role: Primary Care Nurse Name: Rema Vizcaino RN Position: [facility] RN Member Role: Primary Care Nurse Name: Duke Tejeda RN Position: [facility] RN Member Role: Primary Care Nurse Name: Lise Parish Position: [facility] RN Member Role: Primary Care Nurse Name: Kapil Chan RN Position: [facility] RN Member Role: Primary Care Nurse Name: Juli Lilly Position: [facility] Outreach Member Role: Primary Care Nurse Name: Catrachita Mott RN Position: [facility] Hospital Hostess Cashier Member Role: Primary Care Nurse Name: Maria M Rangel RN Position: [facility] RN Member Role: Primary Care Nurse Name: Wiliam Lin MD Position: [facility] Renal MD Member Role: Lifetime Consulting Physician Address: Address: [address] [place] [address] [address] [facility] [place] [address]- Name: Rosa Samuel RN Position: [facility] SN RN Member Role: Primary Care Nurse Name: Caitlyn Alvarez RN Position: [facility] RN Member Role: Primary Care Nurse Name: Susie Mcclain RN Position: [facility] RN Member Role: Primary Care Nurse Name: Lissette Reynolds RN Position: [facility] SN RN Member Role: Primary Care Nurse Name: Eleanor Ricardo RN Position: [facility] RN Member Role: Primary Care Nurse Name: Katya Jade NP Position: Reference Physician Member Role: PCP Address: Address: [address] [place] [address]- Name: Rekha Lara RN Position: [facility] RN Member Role: Primary Care Nurse Care Team Related Persons Name: ALAINA LUNDBERG Address: [address] [address] Name: ANUJ HARDEN Address: [address] [place] [address]
== END 2023-11-15 15:38 | disposition home or self-care (01) ==
LOC: HO.HSMS 11:35
PROVIDERS: PCP Nurse Practitioner Family; Visit Provider Nurse Practitioner Family
DX: G20.B1 Parkinson's disease with dyskinesia, without mention of fluctuations (principal); G62.9 Polyneuropathy, unspecified; G24.01 Drug induced subacute dyskinesia; G40.89 Other seizures
CPT/HCPCS: 99214

== ENCOUNTER → 2023-11-15 11:35 | Outpatient (BNVA) | payer MEDICARE, MEDICAID, SELFPAY | PROVIDERS: PCP Nurse Practitioner Family; Visit Provider Nurse Practitioner Family ==

== ENCOUNTER 2024-06-19 10:15 | Outpatient (AMB) | payer MEDICARE, MEDICAID, SELFPAY ==
[2024-06-19 10:30] VITALS: BP 102/54; BMI 36.6
--- NOTE | 2024-06-19 10:30 | MHC.OFFVIS ---
Vital Signs 06/19/24 10:30 Height 6 ft Weight 270 lb BMI 36.6 BP 102/54 L Blood Pressure Location Rt brachial Position Sitting Intake Visit Reasons: 6 Month F/U Epic Cupid Analyst Required: No Accompanied by: Caregiver Allergies morphine Adverse Reaction (Verified 06/19/24 10:33) Nausea Medication List - Last Reconciled 06/19/24 by Semaj Milian PA-C amlodipine 5 mg PO DAILY atorvastatin 40 mg PO BEDTIME carbidopa-levodopa 25-100 mg 2 tabs at 6am, 9am, and 12pm and 1.5 tab at 4pm and 9pm. 30 days clopidogrel (Plavix) 75 mg PO DAILY divalproex (Depakote) 750 mg PO BEDTIME docusate sodium 100 mg PO BID donepezil 5 mg PO DAILY dulaglutide (Trulicity) mg subcut QWEEK duloxetine (Cymbalta) 60 mg PO BID gabapentin 300 mg PO TID 28 days levothyroxine 112 mcg PO DAILY lisinopril 2.5 mg PO DAILY olanzapine 5 mg PO BEDTIME pantoprazole 40 mg PO BID tamsulosin (Flomax) 0.8 mg PO DAILY trihexyphenidyl 2mq at 8am, 1mg at 12pm, 2mg at 4pm orally .; 28 days HPI Comments Details: 68yr-old male presents for Pt is accompanied by his caregiver. Pt's primary concerns is he is still having bothersome action tremor with writing- especially in his check register, or holding a glass. This is increased when anxious. He has not noticed an appreciable change since increasing Trihexiphendyl, his PCP further increased the dose to 2mg tid about 2 weeks ago. Pt's current PD medication regimen: CD-LD 25-100mg ?2 tabs at 6am, 8:30am, and 12pm and 1.5 tab at 4pm and 8pm. Amantadine 100mg bid at 8am and 4pm Trihexyphenidal 2mg tid at 8am, 12pm, 4pm Gabapentin 300mg tid at 8am, 12pm, 8pm ADL's: Ind Swallowing: No issues Drooling: No issues Orthostatic lightheadedness: None Constipation: None w/ colace bid. Freezing: None Stiffness: None Tremor: BL upper extremity Dyskinesia: Prone to rolling his ankles when watching TV or sitting at the table Falls: None Hallucinations: None Memory: LTM- good. Some STM difficulties. Does better with routines. Mood: Stable. Mood tends to be worse in the am, and is better as the day progresses. Sleep: No issues. Not recalling his dreams as much. He is using his CPAP machine. Exercise: He is still going to the [employer] in [place], 3 X week. He is not riding the bike, and not walking, will continue to be more active. Other: Using BLE compression stockings. [facility] Medical History Parkinson's disease Family History Father Heart disease Mother Cancer Sister No problems noted. Social History Alcohol intake: never Patient Tobacco Use Status: Never used Tobacco Review of Systems Const All systems reviewed & are unremarkable except as noted in HPI and below ENT Reports Normal hearing present Neuro Reports Normal hearing present Physical Exam Vital Signs: Last Vital Signs BP 102/54 L 06/19/24 10:30 BMI result Body Mass Index 36.6 Const General: cooperative, comfortable and no acute distress Nutritional Appearance: obese (BMI 36) Orientation/consciousness: patient oriented x3 HEENT Face and sinus: Yes face symmetric Throat: Yes other Eyes Pupils: Equal, round and reactive pupils present Neck Neck: Yes full ROM (Limited ROM on extension) Resp Effort & Inspection: normal respiratory effort and able to speak in complete sentences Neuro General: patient oriented x3 and moves all extremities Cranial nerves: Yes CN's II-XII intact bilaterally, Yes Facial sensation intact/muscles of mastication intact, Yes Equal, round and reactive pupils present, Yes Normal accommodation reflex present, Yes Bilaterally intact EOM present, Yes Nystagmus not present, Yes Normal facial strength present, Yes Midline tongue present, Yes Symmetric palate elevation present, Yes Normal hearing present, Yes Ability to bilaterally rotate head present, Yes Ability to bilaterally elevate shoulders present and Yes Other cranial nerve findings present (limited cervical extension ) Cognition (Neuro): normal cognition Gait exam (Neuro): Normal gait present Motor exam (neuro): 5/5 motor strength present throughout, Pronator motor function not present, Normal motor muscle tone present throughout, Tremors during motor activity present (UE R>L) and Motor abnormalites present Deep tendon reflexes (DTR's): Right triceps reflex intensity grade: 2+, Left triceps reflex intensity grade: 2+, Rt Biceps (C5, C6): 2+, Left biceps reflex intensity grade: 2+, Right brachioradialis reflex intensity grade: 2+, Left brachioradialis reflex intensity grade: 2+, Right patellar reflex intensity grade: 2+, Left patellar reflex intensity grade: 2+, Right ankle reflex intensity grade: 2+ and Left ankle reflex intensity grade: 2+ Coordination: [id number] test normal (difficulty with Finger to nose ) Psych Appearance: well kempt Mental Status: mental status grossly normal Speech and movement: Normal speech and movement present Affect: Anxious affect present Thought content: Normal thought content present Insight: Good insight present (Psych) Judgement: Good judgement present (Psych) Orientation What is the (year) (season) (date) (day) (month)?: year, season, date, day and month Where are we (state) (county) (town or city) (hospital) (floor)?: state, county, town or city, hospital/clinic and floor Registration Name of 3 unrelated objects clearly and slowly, then ask patient to repeat all 3 of them. (1st repeat determines score. Make sure they can repeat all three): object 1, object 2 and object 3 Attention & Calculation (CHOOSE ONE) Spell WORLD backwards (DLROW): 5 letters Recall Ask patient to repeat the 3 items from question #3.: object 1 and object 2 Language Show patient a wristwatch & ask what it is. Repeat for pencil.: watch and pencil Ask the patient to repeat the phrase 'No ifs, ands, or buts' after you.: incorrect Ask the patient to 'take a piece of paper with their right hand' 'fold paper in half' 'place paper on floor': take paper in right hand, fold paper in half and place paper on floor Print the sentence 'CLOSE YOUR EYES' on a piece. If patient actually closes eyes then score.: followed written direction Give patient a blank piece of paper & ask to write a sentence. Score if it contains a noun & verb.: sentence contains subject and verb Score Score: 27 Results Reviewed Results Reviewed: MARKUS Scan Labs Assessment & Plan Assessment & Plan (1) Parkinson's disease with dyskinesia: Comment: Positive MARKUS scan (03/31 at [facility]) tremor exacerbated by Depakote and Zyprexa Code(s): G20.B1 - Parkinson's disease with dyskinesia, without mention of fluctuations Category: Medical Qualifiers: Fluctuating manifestations: unspecified whether manifestations fluctuate Qualified Code(s): G20.B1 - Parkinson's disease with dyskinesia, without mention of fluctuations (2) Neuropathy: Code(s): G62.9 - Polyneuropathy, unspecified Category: Medical (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 Video EEG-epileptogenic activity in left frontocentral and left temporal region with mild generalized slowing. Code(s): G40.89 - Other seizures Category: Medical Plan As trihexyphendyl recently increased, will hold making any changes for at least 8 weeks to assess for full effect and tolerance. If no reduction in kinetic tremor and tolerated well, could consider further increase in triheyphendyl or increasing Amantadine. -Reviewed to monitor for anti-cholinergic s/e's. Advised to try using a larger check book ledger. Information shared on the international tremor assoc- they have a information on different adaptive equipment which may help pt, discussed using weighted utensils. Discussed trying OT- however pt and caregiver do not think that pt will do the needed work/exercises to make this beneficial. For now: Continue Sinemet 25-100mg ?2 tabs at 6am, 8:30am, and 12pm and 1.5 tab at 4pm and 8pm. Continue Amantadine 100mg bid. Continue trihexyphenidyl 2mg tid, may increase per PCP discretion Jun 26, 2024 Continue Gabapentin 300mg tid. Continue physical activity. f/u in 6 months, may call or message the clinic on the portal as needed. Coding Level of Care Code Est Pt Level 4 (21186) Diagnoses Parkinson's disease with dyskinesia, unspecified whether manifestations fluctuate G20.B1 Fluctuating manifestations: unspecified whether manifestations fluctuate Neuropathy G62.9 Drug induced subacute dyskinesia G24.01 Other seizures G40.89 Time Spent (min) 45 Comment worsening
--- OUTSIDE RECORDS SUMMARY | 2024-06-19 10:34 | XMS_ITS | Continuity of Care Document ---
Author Organization [place] - [facility], [facility] Address [address] [facility] [place] [address] Care Team Providers Care Electronics Processor Name Role Phone ARMANDO VELÁZQUEZ Primary Care Provider [phone] ARMANDO VELÁZQUEZ Referring Provider Assessment Encounter Date Assessment Date Assessment LastModified by Organization Details LastModified Time 04/04/2024 04/04/2024 Ear examination today is normal with a well aerated middle ear space bilaterally. Audiogram demonstrates a stable sensorineural hearing loss compared to prior testing from October 2021. He was provided with a copy of today's audiogram to take to [facility] and he will continue to follow with them for his hearing aid needs. Recommend audiogram in two years or for subjective change in hearing. [email or web address] Not available 04/04/2024 15:22:49 Plan of Treatment Reminders Order Date Submit Date Provider Last Modified By Organization Details Last Modified Time Details Appointments None record ed. Lab None record ed. Referral None record ed. Procedures None record ed. Surgeries None record ed. Imaging None record ed. Medication Orders None record ed. Patient TargetsNo targets recorded. Patient InstructionsNo instructions recorded. Reason for Referral None Reported. Results Created Date Observation Date Name Description Value Unit Range Abnormal Flag Note LastModifiedBy Organization Detail LastModifiedTime 04/04/20 audio gram No observ ation record ed. BARCODE Not Available 2023 16:35:48 Result Notes None recorded. Problems Name Problem SNOMED Code Status Onset Date Resolution Date Notes Provider Name and Address Organization Details Recorded Time Sensorine ural hearing loss of bilateral ears [id number] Active 2020 Sensorineu ral hearing loss, bilateral; Note: Date Diagnosed: 08/13/2020 3:27 PM (H90.3) Not Available [facility] 02:53:07 Problem Notes None recorded. Procedures Surgical History Date Name Laterality Status Provider Name and Address Organization Details Recorded Time 04/04/2024 Air & Speech Audio with Tymps (63975, 18641 & 67707) completed PATTI GODINEZ, [facility] [address] [facility] [address], [place], [address], [facility] 04/04/2024 14:54:36 Imaging Results None recorded. Procedure Notes None recorded. Medical Equipment None Reported. Allergies Allergen ID Allergen Name Allergen Category Reaction Reaction Severity Criticality Documentation Date Start Date Code Code System Note Provider Name and Address Organization Details Recorded Time 937804 morphine medicatio n other Not available Not available 10/24/2023 7052 RxNorm React ion: Unkno wn; Not Available [facility] 01:10:54 Medications Name Sig Start Date Stop Date Status Note LastModified by Organization Details LastModified Time atorvastati n 40 mg tablet active Not Available Not Available Not Available donepezil 5 mg tablet active Not Available Not Available No t Available Nystop 100,000 unit/gram topical powder active Not Available Not Available Not Available clotrimazol e-betametha sone 1 %-0.05 % lotion active Not Available Not Available Not Available sucralfate 1 gram tablet active Not Available Not Available Not Available olanzapine 5 mg tablet active Not Available Not Available Not Available clopidogrel 75 mg tablet active Not Available Not Available Not Available amlodipine 5 mg tablet active Not Available Not Available Not Available ciprofloxac in 500 mg tablet active Not Available Not Available Not Available omeprazole 40 mg capsule,del ayed release active Not Available Not Available Not Available olanzapine 7.5 mg tablet active Medication ID: [id number] Bra nd Name: olanzapine Send Method: E-Prescrib ed Subs Allowed: subs OK Medicat ionGeneric Name: olanzapine Not Available Not Available Not Available amantadine HCl 100 mg capsule active Not Available Not Available Not Available ofloxacin 0.3 % ear drops active Not Available Not Available Not Available tamsulosin 0.4 mg capsule active Not Available Not Available Not Available benzonatate 100 mg capsule active Not Available Not Available Not Available doxycycline monohydrate 100 mg capsule TAKE 1 CAP 2 (TWO) TIMES A DAY FOR 10 DAYS. TAKE W FOOD, YOGURT, PROBIOT ICS. FINISH ALL. active Not Available Not Available No t Available cephalexin 500 mg capsule active Not Available Not Available Not Available docusate sodium 100 mg capsule active Not Available Not Available N ot Available gabapentin 300 mg capsule active Not Available Not Available Not Available omeprazole 20 mg capsule,del ayed release active Not Available Not Available Not Available diazepam 10 mg tablet active Not Available Not Available No t Available trihexyphen idyl 2 mg tablet active Not Available Not Available Not Available carbidopa 25 mg-levodopa 100 mg tablet active Not Available Not Available Not Available ketoconazol e 2 % topical cream active Medication ID: [id number] Bra nd Name: ketoconazo le Send Method: E-Prescrib ed Subs Allowed: subs OK Medicat ionGeneric Name: ketoconazo le Not Available Not Available Not Available lisinopril 2.5 mg tablet active Not Available Not Available Not Available doxycycline hyclate 100 mg tablet active Not Available Not Available No t Available levothyroxi ne 112 mcg tablet active Not Available Not Available Not Available Armida-Lanta 200 mg-200 mg-20 mg/5 mL oral suspension active Not Available Not Available N ot Available divalproex ER 250 mg tablet,exte nded release 24 hr active Not Available Not Available Not Available duloxetine 60 mg capsule,del ayed release active Not Available Not Available Not Available Prodigy Twist Top Lancet 28 gauge active Not Available Not Available Not Available Prodigy No Coding strips active Not Available Not Available Not Available Trulicity 1.5 mg/0.5 mL subcutaneou s pen injector active Not Available Not Available Not Available Trulicity 0.75 mg/0.5 mL subcutaneou s pen injector active Not Available Not Available Not Available Trulicity 3 mg/0.5 mL subcutaneou s pen injector active Not Available Not Available Not Available Vitals None Recorded Social History None recorded. Functional Status None recorded. Mental Status None recorded. Family History Nothing Reported. Medical History No medical history recorded. Past Encounters Encounter ID Performer Location Encounter Start Date Encounter Closed Date Diagnosis/Indication Diagnosis SNOMED-CT Code Diagnosis ICD10 Code Diagnosis Note [id number] FELIX JASMINE MD [facility] on [address] [place] [address] 04/04/2024 14:40:52 04/04/2024 15:19:04 Sensorineural hearing loss of bilateral ears [id number] H90.3 [id number] DANITA POLLOCK [facility] on [address] [place] [address] 04/04/2024 14:54:24 04/04/2024 16:24:10 Sensorineural hearing loss of bilateral ears [id number] H90.3 Right Ear:Mild sloping to a profound SNHL with good speech discrimina tion.Type A tympanogra m.Left Ear:Mild sloping to a profound SNHL with excellent speech discrimina tion.Type A tympanogra m. Health Concerns Section Related Observation LastModified by Organization Detai ls LastModified Time None Recorded Concern Status LastModified by Organization Details LastModified Time None Recorded Payers Encounter Date Sequence Insurance Name Policy Number Policy Bhakta Covered Member ID Bhakta Member ID Guarantor Name 04/04/2024 1 [place] [employer] Greg Chase [id number] Greg Chase 04/04/2024 2 [place] [facility] [id number] Greg Chase Notes Date Note Type Note Provider Name and Address Organization Details Recorded Time 04/04/2024 text/html 68 year old male presents today for hearing evaluation.He is here with his ASSEMBLY LEADER.He has bilateral hearing aids from [facility]. No specific concerns. FELIX JASMINE MD [address] [place] [address], [phone], [facility] - [facility] 04/06/2024 14:18:11
--- OUTSIDE RECORDS SUMMARY | 2024-06-19 10:34 | XMS_ITS | Continuity of Care Document ---
Author Organization [place] - [facility], [facility] Address [address] [facility] [place] [address] Care Team Providers Care Sweatband Decorating Machine Operator Name Role Phone EBER ARMANDO Primary Care Provider EBER ARMANDO Referring Provider [phone] Assessment No assessment recorded. Plan of Treatment Reminders Order Date Submit [...] Flag Note LastModifiedBy Organization Detail LastModifiedTime 04/04/20 24 audio gram No observ ation record ed. BARCODE Not Available 2023 16:35:48 Result Notes None recorded. Problems Name Problem SNOMED Code Status Onset Date Resolution Date Notes Provider Name and Address Organization Details Recorded Time Sensorine ural hearing loss of bilateral ears [id number] Active 2020 Sensorineu ral hearing loss, bilateral; Note: Date Diagnosed: 08/13/2020 3:27 PM (H90.3) Not Available [facility] 02:53:07 Problem Notes None recorded. Procedures Surgical History Date Name Laterality Status Provider Name and Address Organization Details Recorded Time 04/04/2024 Air & Speech Audio with Tymps (34486, 93556 & 47165) completed PATTI GODINEZ, [facility] [address] [facility],[place] [address], [place], [address], [place] - [facility] 04/04/2024 14:54:36 Imaging Results None recorded. Procedure Notes None recorded. Medical Equipment None Reported. Allergies Allergen ID Allergen Name Allergen Category Reaction Reaction Severity Criticality Documentation Date Start Date Code Code System Note Provider Name and Address Organization Details Recorded Time 159295 morphine medicatio n other Not available Not available 10/24/2023 7052 RxNorm React ion: Unkno wn; Not Available [facility] 01:10:54 Medications Name Sig Start Date Stop [...] olanzapine 7.5 mg tablet active Medication ID: [id number] Bra nd Name: olanzapine Send Method: E-Prescrib [...] 2 % topical cream active Medication ID: [id number] Bra nd Name: angelique hernandez Send Method: E-Prescrib ed Subs Allowed: subs OK Medicat ionGeneric Name: angelique hernandez Not Available Not Available Not Available lisinopril [...] SNOMED-CT Code Diagnosis ICD10 Code Diagnosis Note [id number] FELIX JASMINE MD [facility] on [address] [place] [phone] 04/04/2024 14:40:52 04/04/2024 15:19:04 Sensorineural hearing loss of bilateral ears [id number] H90.3 [id number] DANITA POLLOCK [facility] on [address] [place] [phone] 04/04/2024 14:54:24 04/04/2024 16:24:10 Sensorineural hearing loss of bilateral ears [id number] H90.3 Right Ear:Mild sloping to a profound [...] ID Guarantor Name 04/04/2024 1 [place] [employer] Greg Chase [id number] Greg Chase 04/04/2024 2 [place] [facility] Greg Chase [id number] Greg Chase Notes Date Note Type Note Provider Name and Address Organization Details Recorded Time 04/04/2024 text/html 68 year old male presents today for hearing evaluation.He is here with his LACE CUTTER.He has bilateral hearing aids from [facility] [employer]. No specific concerns. FELIX JASMINE MD [address] [place] [address], [phone], [facility] - [facility] 04/06/2024 14:18:11
--- OUTSIDE RECORDS SUMMARY | 2024-06-19 10:34 | XMS_ITS | Data Portability ---
Author Organization [place] - [facility], Allergy Address [address] [place] [phone] Care Team Providers Care Data Control Assistant Name Role Phone ARMANDO VELÁZQUEZ Primary Care Provider ARMANDO VELÁZQUEZ Referring Provider Assessment Encounter Date Assessment Date Assessment LastModified by Organization Details LastModified Time 04/04/2024 04/04/2024 Ear examination today is normal with a well aerated middle ear space bilaterally. Audiogram demonstrates a stable sensorineural hearing loss compared to prior testing from October 2021. He was provided with a copy of today's audiogram to take to [facility] and he will continue to follow with [...] Sensorine ural hearing loss of bilateral ears [id number] Active 2020 Sensorineu ral hearing loss, bilateral; Note: Date Diagnosed: 08/13/2020 3:27 PM (H90.3) Not Available [facility] 4 02:53:07 Problem Notes None recorded. Procedures Surgical History Date Name Laterality Status Provider Name and Address Organization Details Recorded Time 04/04/2024 Air & Speech Audio with Tymps (31969, 14208 & 65248) completed PATTI GODINEZ, AUD 100 [facility], [place], [phone], [facility] - [facility] 04/04/2024 14:54:36 Imaging Results Imaging Date Name Status LastModified by Organiz ation Details LastModified Time 04/04/2024 audiogram completed BAR[facility] Information no t available 04/04/2024 16:35:48 Procedure Notes None recorded. Medical Equipment None Reported. Allergies Allergen ID Allergen Name Allergen Category Reaction Reaction Severity Criticality Documentation Date Start Date Code Code System Note Provider Name and Address Organization Details Recorded Time 531395 morphine medicatio n other Not available Not available 10/24/2023 7052 RxNorm React ion: Unkno wn; Not Available [facility] 4 01:10:54 Medications Name Sig Start Date Stop [...] olanzapine 7.5 mg tablet active Medication ID: [id number] Bra nd Name: olanzapine Send Method: E-Prescrib [...] 2 % topical cream active Medication ID: [id number] Bra nd Name: ketoconazo le Send Method: [...] SNOMED-CT Code Diagnosis ICD10 Code Diagnosis Note [id number] FELIX JASMINE MD [facility] [place] [address], [place] [address] 04/04/2024 14:40:52 04/04/2024 15:19:04 Sensorineural hearing loss of bilateral ears [id number] H90.3 [id number] DANITA POLLOCK [facility] [place] [address], [place] [address] 04/04/2024 14:54:24 04/04/2024 16:24:10 Sensorineural hearing loss of bilateral ears [id number] H90.3 Right Ear:Mild sloping to a profound SNHL with good speech discrimina tion.Type A tympanogra m.Left Ear:Mild sloping to a profound SNHL with excellent speech discrimina tion.Type A tympanogra m. Health Concerns Section Related Observation LastModified by Organization Detai ls LastModified Time None Recorded Concern Status LastModified by Organization Details LastModified Time None Recorded Advance Directives Directive None Recorded Payers Encounter Date Sequence Insurance Name Policy Number Policy Bhakta Covered Member ID Bhakta Member ID Guarantor Name 04/04/2024 1 MEDICARE [place] [facility] Greg Chase [id number] Greg Chase 04/04/2024 2 [place] [facility] Greg Chase [id number] Greg Chase 04/04/2024 1 MEDICARE [place] [facility] Greg Chase [id number] Greg Chase 04/04/2024 2 [place] [facility] Greg Chase [id number] Greg Chase Notes Date Note Type Note Provider Name and Address Organization Details Recorded Time 04/04/2024 text/html 68 year old male presents today for hearing evaluation.He is here with his MIXING MACHINE OPERATOR.He has bilateral hearing aids from [facility]. No specific concerns. FELIX JASMINE MD [address] [place] [address], [phone], [facility] - [facility] 04/06/2024 14:18:11
== END 2024-06-19 11:51 | disposition home or self-care (01) ==
PROVIDERS: PCP Nurse Practitioner Family; Visit Provider Nurse Practitioner Family
DX: G20.B1 Parkinson's disease with dyskinesia, without mention of fluctuations (principal); G62.9 Polyneuropathy, unspecified; G40.89 Other seizures
CPT/HCPCS: 99214

== ENCOUNTER → 2024-06-19 10:15 | Outpatient (BNVA) | payer MEDICARE, MEDICAID, SELFPAY | PROVIDERS: PCP Nurse Practitioner Family; Visit Provider Nurse Practitioner Family | DX: G20.B1 Parkinson's disease with dyskinesia, without mention of fluctuations (principal); G24.01 Drug induced subacute dyskinesia; G62.9 Polyneuropathy, unspecified; G40.89 Other seizures | CPT/HCPCS: 99212 ==

== ENCOUNTER 2024-12-18 09:47 | Outpatient (AMB) | payer MEDICARE, MEDICAID, SELFPAY ==
[2024-12-18 09:53] VITALS: BP 120/60; PULSE 73; O2SAT 97; BMI 35.3
--- NOTE | 2024-12-18 09:53 | A.OFFVIS_ITS ---
Vital Signs 12/18/24 09:53 Height 6 ft Weight 260 lb BMI 35.3 BP 120/60 Blood Pressure Location Lt brachial Position Sitting Pulse 73 Pulse Source Pulse Oximeter Pulse Oximetry (%) 97 Oxygen Delivery Method Room Air Intake Visit Reasons: 6 mo follow up Intake Note: Patient presents follow up Parkinson's medication Equipment Processor Required: No Accompanied by: Self / Same As Patient Allergies morphine Adverse Reaction (Verified 12/18/24 09:58) Nausea HPI Comments Details: 68yr-old r. handed male with Parkinson's Disorders presents for f/u with his caregiver. He is here with his girlfriend and caregiver, Argelia who helps with history. Interim Medical History: November 19, 2024 He fell and broke 3 ribs 7,9,10 on the l. side recently as he entered the bathtub, Rohith Haley started him on oxycodone 5mg, given at hospital but taken only 1x, xray showed 1 rib fracture, [facility] Monday 6am returned to ED and xray showed 3 ribs were fractured. Pt's primary concern is he still has a bothersome action tremor with writing, especially in his check register, or holding a glass. This is increased when anxious. He has not noticed an appreciable change since increasing Trihexiphendyl, his PCP further increased the dose to 2mg tid about 2 weeks ago. He is unable to sleep on his left side comfortably and slept in his recliner for a few days but now has returned to sleeping in his bed on the L. side. Pt's current PD medication regimen: CD-LD 25-100mg ?2 tabs at 6am, 8:30am, and 12pm and 1.5 tab at 4pm and 8pm. Amantadine 100mg bid at 8am and 4pm Trihexyphenidal 2mg tid at 8am, 12pm, 4pm Gabapentin 300mg tid at 8am, 12pm, 8pm ADL's: Independent Swallowing: Denies Drooling: Denies Orthostatic lightheadedness: only upon standing up from a seated position, he will get dizzy. Constipation: None w/ colace bid, BM daily. Freezing: None Stiffness: None Tremor: BL upper extremity R>L uses both hands to lift a glass of water, more pronounced with utensils. Dyskinesia: Prone to rolling his ankles when watching TV or sitting at the table, and moves his feet repeatedly. Falls: November 19 getting into tub. Hallucinations: None Memory: LTM- good. Some STM difficulties. Does better with routines and structures. Needs constant reminders. Mood: Stable. Mood tends to be worse in the am, and is better as the day progresses. Sleep: No issues. Not recalling his dreams as much. He is using his CPAP machine daily. Exercise: He is still going to the [employer] in [place], 3 X week, day program MTF 9-3. He is not riding the bike, and not walking, due to the recent Rib injury. Other: Using BLE compression stockings. [facility] Medical History Parkinson's disease Family History Father Heart disease Mother Cancer Sister No problems noted. Social History Alcohol intake: never Patient Tobacco Use Status: Never used Tobacco Review of Systems ENT Reports Normal hearing present Neuro Reports Normal hearing present Physical Exam Vital Signs: Last Vital Signs Pulse 73 12/18/24 09:53 BP 120/60 12/18/24 09:53 Pulse Ox 97 12/18/24 09:53 Oxygen Delivery Method Room Air 12/18/24 09:53 BMI result Body Mass Index 35.3 Const General: cooperative, comfortable and no acute distress Nutritional Appearance: obese (BMI 36) Orientation/consciousness: patient oriented x3 HEENT Face and sinus: Yes face symmetric Throat: Yes other Eyes Pupils: Equal, round and reactive pupils present Neck Neck: Yes full ROM (Limited ROM on extension) Resp Effort & Inspection: normal respiratory effort and able to speak in complete sentences Neuro General: patient oriented x3 and moves all extremities Cranial nerves: Yes CN's II-XII intact bilaterally, Yes Facial sensation intact/muscles of mastication intact, Yes Equal, round and reactive pupils present, Yes Normal accommodation reflex present, Yes Bilaterally intact EOM present, Yes Nystagmus not present, Yes Normal facial strength present, Yes Midline tongue present, Yes Symmetric palate elevation present, Yes Normal hearing present, Yes Ability to bilaterally rotate head present, Yes Ability to bilaterally elevate shoulders present and Yes Other cranial nerve findings present (limited cervical extension ) Cognition (Neuro): normal cognition Gait exam (Neuro): Normal gait present Motor exam (neuro): 5/5 motor strength present throughout, Pronator motor function not present, Normal motor muscle tone present throughout, Tremors during motor activity present (UE R>L) and Motor abnormalites present Coordination: [id number]-[id number] test normal (difficulty with Finger to nose ) Psych Appearance: well kempt Mental Status: mental status grossly normal Speech and movement: Normal speech and movement present Affect: Anxious affect present Thought content: Normal thought content present Insight: Good insight present (Psych) Judgement: Good judgement present (Psych) Results Reviewed Results Reviewed: requested his cpap compliance [facility] claudication epidural note reviewed Assessment & Plan Assessment & Plan (1) Parkinson's disease with dyskinesia: Comment: Positive MARKUS scan (03/31 at [facility]) tremor exacerbated by Depakote and Zyprexa Code(s): G20.B1 - Parkinson's disease with dyskinesia, without mention of fluctuations Category: Medical Qualifiers: Fluctuating manifestations: unspecified whether manifestations fluctuate Qualified Code(s): G20.B1 - Parkinson's disease with dyskinesia, without mention of fluctuations (2) Low back pain: Code(s): M54.50 - Low back pain, unspecified Category: Medical Qualifiers: Back pain laterality: unspecified Chronicity: chronic Sciatica presence: without sciatica Qualified Code(s): M54.50 - Low back pain, unspecified; G89.29 - Other chronic pain (3) Neuropathy: Comment: gabapentin Code(s): G62.9 - Polyneuropathy, unspecified Category: Medical (4) Other seizures: Comment: Focal seizure s/p embolic stroke in 2014. Video EEG-epileptogenic activity in left frontocentral and left temporal region with mild generalized slowing. Code(s): G40.89 - Other seizures Category: Medical (5) Drug induced subacute dyskinesia: Comment: oral movement d/t Tardive dyskinesia Code(s): G24.01 - Drug induced subacute dyskinesia Category: Medical (6) Fall: Comment: November 19 climbing into tub fx 3 ribs. Did not hit his head. Code(s): W19.XXXA - Unspecified fall, initial encounter Category: Medical Qualifiers: Encounter type: initial encounter Qualified Code(s): W19.XXXA - Unspecified fall, initial encounter Plan As trihexyphendyl recently increased, will hold making any changes for at least 8 weeks to assess for full effect and tolerance. If no reduction in kinetic tremor and tolerated well, could consider further increase in triheyphendyl or increasing Amantadine. -Reviewed to monitor for anti-cholinergic s/e's. Advised to try using a larger check book ledger. Information shared on the international trem[employer]oc.- they have resources for various adaptive equipment which may help with lessening tremors, discussed using weighted utensils. Discussed trying OT- however pt and caregiver do not think that pt will do the needed work/exercises to make this beneficial. For now: Parkinsons Tremors: Continue Sinemet 25-100mg ?2 tabs at 6am, 8:30am, and 12pm and 1.5 tab at 4pm and 8pm. Continue Amantadine 100mg bid. Continue trihexyphenidyl 2mg tid, may increase per PCP discretion in November 2024. Continue Gabapentin 300mg tid. Continue physical activity as tolerable once cleared by PCP. f/u in 6 months, may call or message the clinic on the portal as needed. Patient Instructions: Sleep Hygiene provided: set a scheduled bedtime and wake time to help regulate the circadian rhythm and balance the release of pituitary hormones. Sleep in a dark room, temperatures below 68 degrees, and no devices n bed. Limit caffeinated products 6 hours prior to bed, and limit fluids 2-4 hours prior to bed. Gentle night yoga, diffusing essential oils, and playing soft music can be relaxing. Coding Level of Care Code Est Pt Level 4 (10121) Diagnoses Parkinson's disease with dyskinesia, unspecified whether manifestations fluctuate G20.B1 Fluctuating manifestations: unspecified whether manifestations fluctuate Chronic low back pain without sciatica, unspecified back pain laterality M54.50; G89.29 Back pain laterality: unspecified Chronicity: chronic Sciatica presence: without sciatica Neuropathy G62.9 Other seizures G40.89 Drug induced subacute dyskinesia G24.01 Fall, initial encounter W19.XXXA Encounter type: initial encounter Time Spent (min) 30 Comment Rib fracture due to fall, stable.
--- OUTSIDE RECORDS SUMMARY | 2024-12-18 10:22 | XMS_ITS | Data Portability ---
Author Organization [place] - [facility], Allergy Address [address] [place] [phone] Care Team Providers Care Fundraising Manager Name Role Phone ARMANDO VELÁZQUEZ Primary Care Provider ARMANDO VELÁZQUEZ Referring Provider [phone] Assessment Encounter Date Assessment Date Assessment LastModified by Organization Details LastModified Time 04/04/2024 04/04/2024 Ear examination today is normal with a well aerated middle ear space bilaterally. Audiogram demonstrates a stable sensorineural hearing loss compared to prior testing from October 2021. He was provided with a copy of today's audiogram to take to [facility] and he will continue to follow with [...] Sensorine ural hearing loss of bilateral ears [id number] Active 2020 Sensorineu ral hearing loss, bilateral; Note: Date Diagnosed: 08/13/2020 3:27 PM (H90.3) Not Available [facility] 02:53:07 Problem Notes None recorded. Procedures Surgical History Date Name Laterality Status Provider Name and Address Organization Details Recorded Time 04/04/2024 Air & Speech Audio with Tymps - 96394, 95461 & 79775 completed PATTI GODINEZ, AUD 100 [facility], [place], [phone], [facility] - [facility] 04/04/2024 14:54:36 Imaging Results None recorded. Procedure Notes None recorded. Medical Equipment None Reported. Allergies Allergen ID Allergen Name Allergen Category Reaction Reaction Severity Criticality Documentation Date Start Date Code Code System Note Provider Name and Address Organization Details Recorded Time 081387 morphine medicatio n other Not available Not available 10/24/2023 7052 RxNorm React ion: Unkno wn; Not Available [facility] 01:10:54 Medications Name Sig Start Date Stop [...] olanzapine 7.5 mg tablet active Medication ID: [id number] Bra nd Name: olanzapine Send Method: E-Prescrib [...] 2 % topical cream active Medication ID: [id number] Bra nd Name: ketoconazo le Send Method: [...] SNOMED-CT Code Diagnosis ICD10 Code Diagnosis Note [id number] ELYSIA HOLLOWAY PA-C [facility] on [address] [place] [address] 04/04/2024 14:40:52 04/04/2024 15:19:04 Sensorineural hearing loss of bilateral ears [id number] H90.3 [id number] DANITA POLLOCK [facility] on [address] [place] [address] 04/04/2024 14:54:24 04/04/2024 16:24:10 Sensorineural hearing loss of bilateral ears [id number] H90.3 Right Ear:Mild sloping to a profound SNHL with good speech discrimina tion.Type A tympanogra m.Left Ear:Mild sloping to a profound SNHL with excellent speech discrimina tion.Type A tympanogra m. Health Concerns Section Related Observation LastModified by Organization Detai ls LastModified Time None Recorded Concern Status LastModified by Organization Details LastModified Time None Recorded Advance Directives Directive None Recorded Payers Insurance Date Sequence Insurance Name Policy Number Policy Bhakta Covered Member ID Bhakta Member ID Guarantor Name 04/08/2024 1 [place] [employer] Greg Chase [id number] Greg Chase 04/01/2024 2 MEDICAID-[place]: [facility] Greg Chase [id number] Greg Chase Notes Date Note Type Note Provider Name and Address Organization Details Recorded Time 04/04/2024 text/html 68 year old male presents today for hearing evaluation.He is here with his CREDIT CONTROL CLERK.He has bilateral hearing aids from [facility]. No specific concerns. FELIX JASMINE MD [address] [place] [address], [phone], [facility] - [facility] 04/06/2024 14:18:11
--- OUTSIDE RECORDS SUMMARY | 2024-12-18 10:22 | XMS_ITS | Clinical Summary ---
Author Organization [employer] Address [address] [facility] [address] [place] [address] Care Team Providers Care Supervisor Finishing Room Name Role Phone Unavailable Primary Care Provider Unavailabl e Social History Tobacco Use Types Packs/Day Years Used Date Smoking Tobacco: Never Assessed Sex and Gender Information Value Date Recorded Sex Assigned at Not on file Legal Sex Male 5:36 PM EDT Gender Identity Not on file Sexual Orientation Not on file Plan of Treatment Health Maintenance Due Date Last Done Comments CT Colonography 1955 Colonoscopy 1955 Colorectal Cancer Screening 1955 Depression Screening 1955 FIT DNA/Cologuard 1955 FIT 1955 FOBT 1955 Lipid Panel 1955 Sigmoidoscopy 1955 Alcohol/Substance Use Screening 1967 Tobacco Screening 1967 DTaP/Tdap/Td Vaccines (1 - Tdap) 11/29/1974 Pneumococcal Vaccine: 50+ Years (2 of 2 - PCV) 04/21/2021 04/21/2020 COVID-19 Vaccine (3 - 2023-2 5 season) 2024 09/10/2020, 08/20/2020 Influenza Vaccine (#1) 2025 04/07/2020 RSV Patients and Patients Aged 60 years or older (1 - 1-dose 75+ series) 11/29/2030 Zoster Vaccines Completed 07/20/2020, 05/28/2020, 04/21/2020 HIB Vaccines Aged Out No longer eligi ble based on patient's age to complete this topic HPV Vaccines Aged Out No longer eligi ble based on patient's age to complete this topic Hepatitis A Vaccines Aged Out No long er eligible based on patient's age to complete this topic Hepatitis B Vaccines Aged Out No long er eligible based on patient's age to complete this topic IPV Vaccines Aged Out No longer eligi ble based on patient's age to complete this topic Meningococcal B Vaccine Aged Out No l onger eligible based on patient's age to complete this topic Meningococcal Vaccine Aged Out No bj tessie eligible based on patient's age to complete this topic RSV under 20 months Aged Out No longe r eligible based on patient's age to complete this topic Rotavirus Vaccines Aged Out No longer eligible based on patient's age to complete this topic
--- OUTSIDE RECORDS SUMMARY | 2024-12-18 10:22 | XMS_ITS | Clinical Summary ---
Author Organization [facility] Facility Address [address] [place] [address] Care Team Providers Care Office Secretary Name Role Phone Unavailable Primary Care Provider Unavailabl e Social History Tobacco Use Types Packs/Day Years Used Date Smoking Tobacco: Never Assessed Sex and Gender Information Value Date Recorded Sex Assigned at Not on file Legal Sex Male 9:04 AM EDT Gender Identity Not on file Sexual Orientation Not on file Plan of Treatment Health Maintenance Due Date Last Done Comments Colorectal Cancer Screening: Annual FOBT 11/29/2004 Colorectal Cancer Screening: Colonoscopy 11/29/2004 Colorectal Cancer Screening: Sigmoidoscopy 11/29/2004 Pneumococcal Vaccine: 50+ Ye ars (2 of 2 - PCV) 04/21/2021 04/21/2020 Diabetes: Hemoglobin A1C 04/10/2022 Diabetes: Ophthalmology Exam 04/10/2022 Diabetes: Pedal Pulse Checked 04/10/2022 Diabetes: Sensory Foot Exam 04/10/2022 Diabetes: Visual Foot Exam 04/10/2022 Influenza Vaccine (#1) 2025 04/07/2020 Hepatitis B Vaccine Aged Out No longe r eligible based on patient's age to complete this topic Insurance Medicare [place] [address] [place]
== END 2024-12-18 10:49 | disposition home or self-care (01) ==
LOC: HO.HSMS 09:48
PROVIDERS: PCP Nurse Practitioner Family; Visit Provider Physician Assistant Medical
DX: G20.B1 Parkinson's disease with dyskinesia, without mention of fluctuations (principal); M54.50 Low back pain, unspecified; G89.29 Other chronic pain; G62.9 Polyneuropathy, unspecified; G40.89 Other seizures; G24.01 Drug induced subacute dyskinesia; W19.XXXA Unspecified fall, initial encounter
CPT/HCPCS: 99214

== ENCOUNTER → 2024-12-18 09:47 | Outpatient (BNVA) | payer MEDICARE, MEDICAID, SELFPAY | PROVIDERS: PCP Nurse Practitioner Family; Visit Provider Physician Assistant Medical | DX: G20.B1 Parkinson's disease with dyskinesia, without mention of fluctuations (principal); G62.9 Polyneuropathy, unspecified; M54.50 Low back pain, unspecified; G89.29 Other chronic pain; Z79.899 Other long term (current) drug therapy | CPT/HCPCS: 99212 ==